=== PATIENT | female | born 1960 | race Caucasian/White ===

== ENCOUNTER → 2019-02-18 | Outpatient (REF) ==
--- NOTE | 2019-02-18 12:00 | REP ---
LUMBAR SPINE: Three views limited study. HISTORY: Degenerative disc disease. FINDINGS: Lumbar vertebral body heights are preserved. Alignment is normal. Pedicles and posterior elements are intact. There is no evidence of spondylolysis or spondylolisthesis. There is degenerative disc disease diffusely in the lumbar spine as well as in the visualized lower thoracic disc levels. In the lumbar spine disc space narrowing and osteophyte formation are most pronounced at L4-5 and L3-4. No bony destructive lesion is seen. No fracture or collapse is noted. There is facet hypertrophy and sclerosis bilaterally at L4-5 and L5-S1. Sacrum and SI joints are intact. Psoas margins are symmetric. IMPRESSION: Degenerative spondylosis changes as noted above. Electronically Signed by Gucci Barnes MD 02/18/2019 01:05 P
== END ==
LOC: M SMT 10:05
PROVIDERS: ATTEND Internal Medicine
DX: Z02.71 Encounter for disability determination (principal)